=== PATIENT | female | born 1965 | race Caucasian/White ===

== ENCOUNTER → 2017-06-07 | Outpatient (CLI) | payer MEDICARE ==
[~2017-06-07] MED LIST: ALBUTEROL17 GM INH; BUSPAR PO; CELEXA PO; FLEXERIL PO; HCTZ PO; IBUPROFEN PO; KLONOPIN PO; PROZAC PO; TOPAMAX PO; ZITHROMAX PO
--- NOTE | ~2017-06-07 | MR17 ---
[facility] A Service of [facility] & [facility] RADIOLOGY TEXT RESULTS PATIENT: SHELLI FARMER LOCATION: [facility] : 67 UNIT #: [id number] AGE: [address]: James Heredia II, MD SEX: F ORDER DR: [id number] [facility] [address] [place], [place] [address] [id number] O MR#: [id number] Acc #: [id number] NAME: SHELLI FARMER : 1965 SEX: F STUDY DATE/TIME: 06/07/2017 7:12 UNIT: [facility] ROOM: STUDY DESCRIPTION: MR Brain WWo Contrast Attending Physician: James Heredia II., M.D. Referring Physician: James Heredia II., M.D. Ordering Physician: James Heredia II., M.D. Primary Care Physician: Belinda Cabezas [facility] REPORT This report is preliminary unless electronic signature is present. EXAM MRI of the brain with and without contrast dated 06/07/2017 COMPARISON None HISTORY Seizures in the past. The patient did not have any for eight years. It started again in January 2017. TECHNIQUE Multisequence, multiplanar imaging of the brain was obtained with and without contrast. 14 mL of MultiHance was administered intravenously. FINDINGS No acute stroke, space-occupying intracranial mass, mass effect, midline shift or hydrocephalus. Vascular flow voids of the major cerebral arteries and dural venous sinuses demonstrate no evidence of complete occlusion. 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 Small scattered few hyperintense T2 signal lesions are noted in the subcortical white matter or bifrontal lobes. No acute stroke, hydrocephalus, hemorrhage or midline shift. Coronal thin T2 sequence through the hippocampal formations demonstrate normal expected shape, size and signal of the hippocampi. Post contrast sequences do not demonstrate enhancing lesions. S-shaped nasal septal deviation is noted with mild bilateral ethmoid sinus mucosal thickening. Mastoids and orbits of the ocular structures are unremarkable. Thick slices through the sella with the pituitary gland, pineal region of the cervical spine and internal auditory canal in the ear structures are unremarkable. IMPRESSION [facility] A Service of [facility] & [facility] RADIOLOGY TEXT RESULTS PATIENT: SHELLI FARMER LOCATION: [facility] : 67 UNIT #: [id number] AGE: [address]: James Heredia II, MD SEX: F ORDER DR: Nonenhancing scattered few hyperintense T2 signal lesions are noted in the white matter, particularly in the bifrontal lobes suggestive of mild chronic microvascular ischemic change or migraine based on age and statistics. No acute stroke, enhancing mass, hydrocephalus or hemorrhage. Dictated by... Farhat Caldera M.D. THIS IS AN ELECTRONICALLY VERIFIED REPORT Farhat Caldera M.D. at 06/13/2017 4:08 PM CPR/to TD: 06/08/2017 17:56 JOB #: [id number] MRI CENTER REPORT Page 1 of 1 COPY
--- NOTE | ~2017-06-07 | EE ---
Unit #: [id number] #: [id number] Patient: SHELLI FARMER [id number] [address] [address] [id number] O MR#: [id number] NAME: SHELLI FARMER. : 1965 SEX: F STUDY DATE/TIME: 06/07/2017 UNIT: [facility] ROOM: STUDY DESCRIPTION: EEG Attending Physician: James Heredia II., M.D. Referring Physician: James Heredia II., M.D. Primary Care Physician: Belinda Cabezas NEURODIAGNOSTICS REPORT EXAM EEG REASON FOR STUDY Seizures. vendome 1699 TECHNICAL INFORMATION This is a routine EEG performed using the standard International 10-20 System of electrode placement. Photic stimulation was performed. Hyperventilation was also performed. REPORT Throughout the entire study, the best background rhythm seen is approximately 11-12 Hz. This rhythm is seen in both posterior head regions symmetrically and does attenuate with eye opening and closure. Hyperventilation was performed which failed to reproduce any abnormal build-up. Photic stimulation was also performed which did not elicit any epileptiform abnormalities. However, a good photic driving response was seen. Throughout the entire study, there were no electrographic seizures recorded, nor were there any epileptiform abnormalities seen. No sleep was recorded during the EEG. INTERPRETATION This is a normal awake EEG. A normal EEG does not rule out the possibility of seizure disorder. Clinical correlation is advised. Dictated by... aJmes Heredia II., M.D. GWS/chandrika TD: 06/13/2017 12:06 JOB #: [id number] Unit #: [id number] #: [id number] Patient: SHELLI FARMER NEURODIAGNOSTICS REPORT Page 1 of 1 X NEURODIAGNOSTICS REPORT
== END | disposition home or self-care (01) ==
LOC: CMRI 06:37
DX: R56.9 Unspecified convulsions (principal); R90.82 White matter disease, unspecified
CPT/HCPCS: 70553; 95816; A9577